=== PATIENT | female | born 1975 | race Hispanic/Latino ===

== ENCOUNTER 2021-03-14 12:42 | Emergency (ER) | payer OTHER, SELFPAY ==
[2021-03-14] MEDS ORDERED: Cephalexin 250 MG CAP ONE (13:35)
== END 2021-03-14 13:40 | disposition home or self-care (01) ==
LOC: BURERS 12:42
DX: S81.802A Unspecified open wound, left lower leg, initial encounter (principal); L08.9 Local infection of the skin and subcutaneous tissue, unspecified; E11.9 Type 2 diabetes mellitus without complications; V49.9XXA Car occupant (driver) (passenger) injured in unspecified traffic accident, initial encounter
CPT/HCPCS: 99282

== ENCOUNTER 2024-05-13 17:58 | Emergency (ER) | payer BC, SELFPAY ==
[2024-05-13 19:14] LABS: #Basophils 0.2 thou/uL (0.0-0.2); #Lymphocytes 1.3 thou/uL (1.20-3.40); #Monocytes 1.2 thou/uL (0.11-0.59); #Neutrophils 12.8 thou/uL (1.40-6.50); %Lymphocytes 8.4 % (21.0-51.0); %Monocytes 7.7 % (0.0-10.0); %Neutrophils 82.9 % (42.0-75.0); Hematocrit 37.6 % (36.0-47.0); Hemoglobin 11.9 g/dL (12.0-16.0); Mean Corpuscular HGB CONC 31.6 g/dL (32.0-36.0); Mean Corpuscular Hemoglobin 27.7 pg (27.0-31.0); Mean Corpuscular Volume 87.7 fl (78.0-98.0); Mean Platelet Volume 8.5 fL (7.4-10.4); Platelet Count 129 10x3/uL (130-400); RBC Distribution Width 15.5 % (11.5-14.5); Red Blood Cell (RBC) Count 4.29 mill/uL (4.20-5.40); White Blood Cell (WBC) Count 15.4 10x3/uL (4.8-10.8)
[2024-05-13 19:27] LABS: ALT (SGPT) 11 U/L (8-55); AST (SGOT) 19 U/L (5-34); Albumin 2.5 g/dL (3.5-5.0); Alkaline Phosphatase 82 U/L (40-110); Anion Gap 17 mmol/L (10-20); BUN (Urea Nitrogen) 45 mg/dL (7.0-18.7); Bilirubin, Total 0.7 mg/dL (0.2-1.2); Calc. Creatinine Clearance 0 mL/min (70-130); Calcium 8.1 mg/dL (7.8-10.44); Carbon Dioxide 25 mmol/L (22-29); Chloride 95 mmol/L (98-107); Estimated GFR 6; Globulin 4.4 g/dL (2.4-3.5); Glucose 130 mg/dL (70-105); Lipase 58 U/L (8-78); Protein, Total 6.9 g/dL (6.0-8.3); Sodium 133 mmol/L (136-145)
[2024-05-13 19:28] LABS: Critical Call Chem Troponin I ERS.KNS @ 1927
[2024-05-13] MEDS ORDERED: Aspirin Chewable 81 MG TAB ONE (19:41)
[2024-05-13] MEDS ORDERED: Enoxaparin 100 MG (1 mL) SYRINGE ONE (19:51)
[2024-05-13] MEDS ORDERED: Oseltamivir 75 MG CAP ONE (21:14)
[2024-05-13 22:09] LABS: Critical Call Chem Troponin I CCU.EM @ 2208; Troponin I 0.579 ng/mL (< 0.028)
== END 2024-05-14 00:28 | disposition short-term general hospital (02) ==
LOC: BURERS 17:58
DX: I21.4 Non-ST elevation (NSTEMI) myocardial infarction (principal); J11.1 Influenza due to unidentified influenza virus with other respiratory manifestations; N17.9 Acute kidney failure, unspecified; I13.0 Hypertensive heart and chronic kidney disease with heart failure and stage 1 through stage 4 chronic kidney disease, or unspecified chronic kidney disease; E11.22 Type 2 diabetes mellitus with diabetic chronic kidney disease; I50.9 Heart failure, unspecified; N18.9 Chronic kidney disease, unspecified
CPT/HCPCS: 36415; 71045; 80053; 83605; 83690; 84484; 85025; 87428; 93005; 96372; J1650